=== PATIENT | male | born 1970 | race Caucasian/White ===

== ENCOUNTER 2018-09-28 13:37 | Emergency (ER) | payer OTHER ==
[~2018-09-28] VITALS: Ht 188 cm; Wt 122.7 kg
[~2018-09-28 13:37] MED LIST: ATOR20TA66 PO; CYCL-1 PO; FAMO-128 PO; IBUP-1986 PO; LISI-600 PO; MECL12.584 PO
[2018-09-28] MEDS ORDERED: ORPH100T2 PO (14:15)
[2018-09-28] MEDS ORDERED: ketorolac trometh inj. 60 MG/2 ML VIAL IM ONE (14:15)
[2018-09-28 14:35] VITALS: BP 150/75
== END 2018-09-28 14:43 | disposition home or self-care (01) ==
LOC: ER 13:37
DX: M54.6 Pain in thoracic spine (principal); E78.00 Pure hypercholesterolemia, unspecified; I10 Essential (primary) hypertension; Z79.899 Other long term (current) drug therapy; X50.0XXA Overexertion from strenuous movement or load, initial encounter; Y93.89 Activity, other specified; Y92.89 Other specified places as the place of occurrence of the external cause; Y99.8 Other external cause status
CPT/HCPCS: 96372; 99283; J1885

== ENCOUNTER 2019-07-26 08:02 | Emergency (ER) | payer OTHER ==
[~2019-07-26] VITALS: Ht 188 cm; Wt 125.6 kg
[~2019-07-26 08:02] MED LIST changes: +MECL-183 PO; -MECL12.584 PO; +ORPH100T2 PO
[2019-07-26 08:08] VITALS: BP 144/84
[2019-07-26] MEDS ORDERED: NAPR-56 PO (08:22)
== END 2019-07-26 08:37 | disposition home or self-care (01) ==
LOC: ER 08:02
DX: M25.461 Effusion, right knee (principal); E78.00 Pure hypercholesterolemia, unspecified; I10 Essential (primary) hypertension; F10.99 Alcohol use, unspecified with unspecified alcohol-induced disorder; Z79.899 Other long term (current) drug therapy; X58.XXXA Exposure to other specified factors, initial encounter; Y93.89 Activity, other specified; Y92.89 Other specified places as the place of occurrence of the external cause; Y99.8 Other external cause status; Y90.9 Presence of alcohol in blood, level not specified
CPT/HCPCS: 99283

== ENCOUNTER 2019-08-12 10:41 | Emergency (ER) | payer OTHER ==
[~2019-08-12] VITALS: Ht 188 cm; Wt 124.0 kg
[~2019-08-12 10:41] MED LIST changes: +NAPR-56 PO
[2019-08-12] MEDS ORDERED: ketorolac tromethamine 15mg/ml inj. IM ONE (13:20)
[2019-08-12] MEDS ORDERED: DICL100G15 TOP (13:33)
[2019-08-12 13:39] VITALS: BP 178/80
== END 2019-08-12 13:43 | disposition home or self-care (01) ==
LOC: ER 10:42
DX: M25.561 Pain in right knee (principal); E78.00 Pure hypercholesterolemia, unspecified; I10 Essential (primary) hypertension; Z72.89 Other problems related to lifestyle; Z79.899 Other long term (current) drug therapy; X50.1XXA Overexertion from prolonged static or awkward postures, initial encounter; Y93.89 Activity, other specified; Y92.89 Other specified places as the place of occurrence of the external cause; Y99.8 Other external cause status
CPT/HCPCS: 29530; 73721; 96372; 99284; J1885

== ENCOUNTER 2021-01-17 07:13 | Outpatient (CLI) | payer BC ==
[~2021-01-17 07:13] MED LIST changes: +DICL100G15 TOP; -LISI-600 PO; +LISI20TA28 PO; -MECL-183 PO; +MECL-226 PO; -NAPR-56 PO
[2021-01-17 09:20] LABS: CHOL/HDL RATIO 6.6 (0.00-4.99); CHOLESTEROL 138 MG/DL (0-200); HDL CHOLESTEROL 21 MG/DL (35-60); LDL CHOLESTEROL 103 MG/DL (50-100); TRIGLYCERIDES 93 MG/DL (20-135)
== END 2021-01-17 23:59 | disposition home or self-care (01) ==
LOC: LAB 07:13
PROVIDERS: ATTEND General Practice
DX: E78.5 Hyperlipidemia, unspecified (principal)
CPT/HCPCS: 36415; 80061

== ENCOUNTER 2022-01-01 08:38 | Outpatient (CLI) | payer OTHER | END 2022-01-01 23:59 | disposition home or self-care (01) | LOC: RAD 08:38 | PROVIDERS: ATTEND Family Medicine | DX: M25.461 Effusion, right knee (principal); M23.8X1 Other internal derangements of right knee; M94.8X8 Other specified disorders of cartilage, other site | CPT/HCPCS: 73721 ==

== ENCOUNTER 2022-01-02 13:40 | Outpatient (CLI) | payer OTHER ==
[2022-01-02 14:43] LABS: C-REACTIVE PROTEIN 0.28 MG/DL (0.0-0.5)
[2022-01-02 15:37] LABS: RHEUM FACTOR QUAL REFLEX TITER NEGATIVE (Neg)
== END 2022-01-02 23:59 | disposition home or self-care (01) ==
LOC: LAB 13:40
PROVIDERS: ATTEND Family Medicine
DX: M23.8X1 Other internal derangements of right knee (principal)
CPT/HCPCS: 36415; 85651; 86140; 86430

== ENCOUNTER 2023-02-26 06:38 | Outpatient (CLI) | payer BC ==
[~2023-02-26 06:38] MED LIST changes: -ORPH100T2 PO; +ORPH100T4 PO
[2023-02-26 07:27] LABS: ALANINE AMINOTRANSFERASE 54 U/L (12-78); ALBUMIN 4.3 G/DL (3.4-5.0); ALBUMIN/GLOBULIN RATIO 1.1 (1.1-1.5); ALKALINE PHOSPHATASE 67 IU/L (46-116); ANION GAP 7 (8-16); ASPARTATE AMINO TRANSFERASE 39 U/L (10-37); BILIRUBIN,TOTAL 0.5 MG/DL (0.1-1.0); BLOOD UREA NITROGEN 16 MG/DL (7-18); CALCIUM 9.3 MG/DL (8.5-10.1); CHLORIDE 101 MMOL/L (99-107); CHOL/HDL RATIO 4.3 (0.00-4.99); CHOLESTEROL 111 MG/DL (0-200); CREATININE 1.14 MG/DL (0.60-1.10); GLUCOSE 99 MG/DL (70-104); HDL CHOLESTEROL 26 MG/DL (35-60); LDL CHOLESTEROL 71 MG/DL (50-100); POTASSIUM 3.9 MMOL/L (3.5-5.1); SODIUM 137 MMOL/L (135-145); TOTAL CARBON DIOXIDE 28.6 MMOL/L (24-32); TOTAL PROTEIN 8.3 G/DL (6.4-8.2); TRIGLYCERIDES 72 MG/DL (20-135); eGFR 68 ML/MIN
[2023-02-26 07:42] LABS: BILIRUBIN,URINE NEGATIVE (Neg); CLARITY,URINE CLEAR (Clear); COLOR,URINE YELLOW (Yellow); GLUCOSE, URINE NEGATIVE (Neg); KETONES,URINE NEGATIVE (Neg); LEUKOCYTE ESTERASE ,URINE NEGATIVE (Neg); NITRITES, URINE NEGATIVE (Neg); OCCULT BLOOD,URINE NEGATIVE (Neg); PROTEIN,URINE NEGATIVE (Neg); UROBILINOGEN,URINE 0.2 E.U/dL (0.2-1.0)
[2023-02-26 07:45] LABS: UA COLLECTION TYPE VOIDED
[2023-02-26 07:49] LABS: BASOPHILS # (AUTO) 0.1 X10'3 (0-0.2); EOSINOPHILS # (AUTO) 0.2 X10'3 (0-0.9); HEMOGLOBIN 14.9 g/dl (14.0-17.9); LYMPHOCYTES # (AUTO) 1.7 X10'3 (1.1-4.8); LYMPHOCYTES % (AUTO) 23.1 % (21-51); MEAN CORPUSCULAR HEMOGLOBIN 30.6 PG (27.0-31.0); MEAN CORPUSCULAR HGB CONC 34.7 g/dL (33.0-36.5); MEAN CORPUSCULAR VOLUME 88.1 FL (78-98); MEAN PLATELET VOLUME 8.6 FL (7.4-10.4); MONOCYTES # (AUTO) 0.8 X10'3 (0-0.9); MONOCYTES % (AUTO) 10.2 % (2-12); NEUTROPHILS # (AUTO) 4.7 X10'3 (1.8-7.7); NEUTROPHILS % (AUTO) 62.7 % (42-75); PLATELET COUNT 225 X10'3 (140-440); RED BLOOD COUNT 4.88 X10'6 (4.70-6.10); RED CELL DISTRIBUTION WIDTH 12.7 % (11.5-14.5); WHITE BLOOD COUNT 7.4 X10'3 (4.5-11.0)
== END 2023-02-26 23:59 | disposition home or self-care (01) ==
LOC: LAB 06:38
PROVIDERS: ATTEND Physician Assistant Medical
DX: E78.5 Hyperlipidemia, unspecified (principal); R74.01 Elevation of levels of liver transaminase levels; R35.1 Nocturia; I10 Essential (primary) hypertension; R10.31 Right lower quadrant pain
CPT/HCPCS: 36415; 80053; 80061; 81003; 84153; 85025

== ENCOUNTER 2023-06-03 07:10 | Emergency (ER) | payer BC ==
[~2023-06-03] VITALS: Ht 189.2 cm; Wt 125.0 kg
[2023-06-03 07:14] VITALS: TEMP 97.5
[2023-06-03 08:11] LABS: BASOPHILS # (AUTO) 0.1 X10'3 (0-0.2); BASOPHILS % (AUTO) 0.8 % (0-1); EOSINOPHILS # (AUTO) 0.3 X10'3 (0-0.9); EOSINOPHILS % (AUTO) 3.6 % (0-6); HEMATOCRIT 42.7 % (42.0-52.0); HEMOGLOBIN 14.7 g/dl (14.0-17.9); LYMPHOCYTES # (AUTO) 1.6 X10'3 (1.1-4.8); LYMPHOCYTES % (AUTO) 20.1 % (21-51); MEAN CORPUSCULAR HEMOGLOBIN 30.3 PG (27.0-31.0); MEAN CORPUSCULAR HGB CONC 34.4 g/dL (33.0-36.5); MEAN PLATELET VOLUME 8.3 FL (7.4-10.4); MONOCYTES # (AUTO) 0.6 X10'3 (0-0.9); MONOCYTES % (AUTO) 7.6 % (2-12); NEUTROPHILS # (AUTO) 5.4 X10'3 (1.8-7.7); NEUTROPHILS % (AUTO) 67.9 % (42-75); PLATELET COUNT 224 X10'3 (140-440); RED BLOOD COUNT 4.86 X10'6 (4.70-6.10); WHITE BLOOD COUNT 7.9 X10'3 (4.5-11.0)
[2023-06-03 08:27] LABS: ALANINE AMINOTRANSFERASE 39 U/L (12-78); ALBUMIN 4.1 G/DL (3.4-5.0); ALKALINE PHOSPHATASE 81 IU/L (46-116); AMYLASE 58 U/L (25-115); ANION GAP 9 (8-16); ASPARTATE AMINO TRANSFERASE 28 U/L (10-37); BILIRUBIN,TOTAL 0.5 MG/DL (0.1-1.0); BLOOD UREA NITROGEN 11 MG/DL (7-18); BUN/CREATININE RATIO 10.9 (10.0-20.0); CALCIUM 9.2 MG/DL (8.5-10.1); CHLORIDE 101 MMOL/L (99-107); CREATININE 1.01 MG/DL (0.60-1.10); GLUCOSE 92 MG/DL (70-104); LIPASE 42 U/L (16-77); POTASSIUM 4.1 MMOL/L (3.5-5.1); SODIUM 136 MMOL/L (135-145); TOTAL CARBON DIOXIDE 26.4 MMOL/L (24-32); TOTAL PROTEIN 8.3 G/DL (6.4-8.2); eCRCL 102 ML/MIN; eGFR 78 ML/MIN
[2023-06-03 09:35] LABS: BILIRUBIN,URINE NEGATIVE (Neg); CLARITY,URINE CLEAR (Clear); COLOR,URINE YELLOW (Yellow); GLUCOSE, URINE NEGATIVE (Neg); KETONES,URINE NEGATIVE (Neg); LEUKOCYTE ESTERASE ,URINE NEGATIVE (Neg); NITRITES, URINE NEGATIVE (Neg); OCCULT BLOOD,URINE NEGATIVE (Neg); PH,URINE 6.5 (4.8-8.0); PROTEIN,URINE NEGATIVE (Neg); UROBILINOGEN,URINE 0.2 E.U/dL (0.2-1.0)
[2023-06-03 09:44] LABS: UA COLLECTION TYPE VOIDED
[2023-06-03 12:08] VITALS: BP 153/88; PULSE 49; RESP 18; O2SAT 98
== END 2023-06-03 12:13 | disposition home or self-care (01) ==
LOC: ER 07:11
DX: R10.84 Generalized abdominal pain (principal); E78.00 Pure hypercholesterolemia, unspecified; I10 Essential (primary) hypertension; Z79.899 Other long term (current) drug therapy
CPT/HCPCS: 36415; 74176; 80053; 81003; 82150; 83690; 85025; 99284

== ENCOUNTER 2024-01-01 10:23 | Outpatient (CLI) | payer BC ==
[2024-01-01 12:32] LABS: BASOPHILS % (AUTO) 0.5 % (0-1); EOSINOPHILS # (AUTO) 0.3 X10'3 (0-0.9); EOSINOPHILS % (AUTO) 3.6 % (0-6); HEMATOCRIT 42.9 % (42.0-52.0); HEMOGLOBIN 14.7 g/dl (14.0-17.9); LYMPHOCYTES # (AUTO) 1.8 X10'3 (1.1-4.8); LYMPHOCYTES % (AUTO) 19.9 % (21-51); MEAN CORPUSCULAR HEMOGLOBIN 30.6 PG (27.0-31.0); MEAN CORPUSCULAR HGB CONC 34.2 g/dL (33.0-36.5); MEAN CORPUSCULAR VOLUME 89.5 FL (78-98); MEAN PLATELET VOLUME 8.8 FL (7.4-10.4); MONOCYTES # (AUTO) 0.7 X10'3 (0-0.9); PLATELET COUNT 218 X10'3 (140-440); RED CELL DISTRIBUTION WIDTH 12.6 % (11.5-14.5); WHITE BLOOD COUNT 8.9 X10'3 (4.5-11.0)
[2024-01-01 12:38] LABS: ALANINE AMINOTRANSFERASE 43 U/L (12-78); ALBUMIN 3.9 G/DL (3.4-5.0); ALBUMIN/GLOBULIN RATIO 0.9 (1.1-1.5); ALKALINE PHOSPHATASE 72 IU/L (46-116); ANION GAP 7 (8-16); ASPARTATE AMINO TRANSFERASE 29 U/L (10-37); BILIRUBIN,TOTAL 0.4 MG/DL (0.1-1.0); BLOOD UREA NITROGEN 16 MG/DL (7-18); CALCIUM 9.4 MG/DL (8.5-10.1); CHLORIDE 103 MMOL/L (99-107); CREATININE 0.94 MG/DL (0.60-1.10); GLUCOSE 91 MG/DL (70-104); POTASSIUM 3.7 MMOL/L (3.5-5.1); SODIUM 138 MMOL/L (135-145); TOTAL CARBON DIOXIDE 28.4 MMOL/L (24-32); TOTAL PROTEIN 8.3 G/DL (6.4-8.2); URIC ACID 5.9 MG/DL (3.5-7.2); eGFR 84 ML/MIN
== END 2024-01-01 23:59 | disposition home or self-care (01) ==
LOC: RAD 10:23
PROVIDERS: ATTEND Podiatrist Foot & Ankle Surgery
DX: M77.31 Calcaneal spur, right foot (principal); I73.89 Other specified peripheral vascular diseases; M79.671 Pain in right foot; R53.82 Chronic fatigue, unspecified; M10.9 Gout, unspecified; M84.376A Stress fracture, unspecified foot, initial encounter for fracture
CPT/HCPCS: 36415; 73630; 80053; 84550; 85025

== ENCOUNTER 2024-03-15 11:25 | Observation (INO) | payer BC ==
[~2024-03-15] VITALS: Ht 188 cm; Wt 133.0 kg
[2024-03-15 11:52] LABS: BASOPHILS # (AUTO) 0.1 X10'3 (0-0.2); BASOPHILS % (AUTO) 0.7 % (0-1); EOSINOPHILS # (AUTO) 0.3 X10'3 (0-0.9); HEMATOCRIT 43.5 % (42.0-52.0); LYMPHOCYTES # (AUTO) 1.8 X10'3 (1.1-4.8); LYMPHOCYTES % (AUTO) 17.8 % (21-51); MEAN CORPUSCULAR HEMOGLOBIN 30.3 PG (27.0-31.0); MEAN CORPUSCULAR HGB CONC 34.4 g/dL (33.0-36.5); MEAN CORPUSCULAR VOLUME 88.1 FL (78-98); MEAN PLATELET VOLUME 8.5 FL (7.4-10.4); MONOCYTES # (AUTO) 0.8 X10'3 (0-0.9); MONOCYTES % (AUTO) 8.1 % (2-12); NEUTROPHILS # (AUTO) 7.2 X10'3 (1.8-7.7); NEUTROPHILS % (AUTO) 70.4 % (42-75); PLATELET COUNT 233 X10'3 (140-440); RED BLOOD COUNT 4.94 X10'6 (4.70-6.10); WHITE BLOOD COUNT 10.3 X10'3 (4.5-11.0)
[2024-03-15 12:09] LABS: ALANINE AMINOTRANSFERASE 45 U/L (12-78); ALBUMIN 4.2 G/DL (3.4-5.0); ALBUMIN/GLOBULIN RATIO 1.1 (1.1-1.5); ALKALINE PHOSPHATASE 78 IU/L (46-116); ANION GAP 10 (8-16); ASPARTATE AMINO TRANSFERASE 28 U/L (10-37); BILIRUBIN,TOTAL 0.4 MG/DL (0.1-1.0); BLOOD UREA NITROGEN 18 MG/DL (7-18); BUN/CREATININE RATIO 16.8 (10.0-20.0); CALCIUM 9.7 MG/DL (8.5-10.1); CHLORIDE 102 MMOL/L (99-107); CREATININE 1.07 MG/DL (0.60-1.10); GLUCOSE 85 MG/DL (70-104); SODIUM 137 MMOL/L (135-145); TOTAL PROTEIN 8.2 G/DL (6.4-8.2); eCRCL 94 ML/MIN; eGFR 73 ML/MIN
[2024-03-15 12:16] LABS: PRO BRAIN NATRIURETIC PEPTIDE 91 PG/ML (0-125)
[2024-03-15] MEDS: meclizine 12.5mg tablet PO ONE (14:58)
[2024-03-15] MEDS: normal saline 500ml IV soln 500 ML IV ONE (15:00)
[2024-03-15] MEDS ORDERED: iohexol 350MG/ML 100ml bottle IV ONE (15:47)
[2024-03-15] MEDS ORDERED: clopidogrel 300mg tablet PO ONE (18:55)
[2024-03-15] MEDS ORDERED: CLOP-32 PO (19:38)
[2024-03-15] MEDS: clopidogrel 75mg tablet PO ONE (20:24)
[2024-03-15] MEDS: aspirin 325mg tablet PO ONE (20:24)
[2024-03-15] MEDS ORDERED: acetaminophen 325mg tablet PO PRN ×2 (20:40)
[2024-03-15] MEDS ORDERED: magnesium hydroxide 30ml (MOM) UD suspension PO PRN (20:40)
[2024-03-15] MEDS ORDERED: potassium Cl 20 mEq SR tablet PO PRN (20:40)
[2024-03-15] MEDS ORDERED: mag hydrox/Alum hydrox/simeth 30ml oral suspension PO PRN (20:40)
[2024-03-15] MEDS ORDERED: magnesium Cl slow-release 64mg tablet PO PRN (20:40)
[2024-03-15] MEDS ORDERED: ondansetron/PF 4mg/2ml inj IV PRN (20:40)
[2024-03-15] MEDS ORDERED: magnesium sulf-water 2g/50mL 50 ML IV PRN (20:40)
[2024-03-15] MEDS ORDERED: magnesium sulf-water 4G/100mL 100 ML IV PRN (20:40)
[2024-03-15] MEDS ORDERED: potassium Cl 40MEQ/1/2NS 520ml 520 ML IV PRN (20:40)
[2024-03-15] MEDS ORDERED: FENO134C21 PO (21:25)
[2024-03-15] MEDS ORDERED: METO-395 PO (21:25)
[2024-03-15] MEDS ORDERED: LISI1TAB53 PO (21:25)
[2024-03-15] MEDS ORDERED: ATOR10TA70 PO (21:25)
[2024-03-15 23:26] LABS: CHOLESTEROL 124 MG/DL (0-200); HDL CHOLESTEROL 25 MG/DL (35-60); LDL CHOLESTEROL 82 MG/DL (50-100); TRIGLYCERIDES 143 MG/DL (20-135)
[2024-03-16 02:39] LABS: BASOPHILS # (AUTO) 0.1 X10'3 (0-0.2); BASOPHILS % (AUTO) 0.7 % (0-1); EOSINOPHILS # (AUTO) 0.4 X10'3 (0-0.9); EOSINOPHILS % (AUTO) 4.4 % (0-6); HEMATOCRIT 41.4 % (42.0-52.0); HEMOGLOBIN 13.7 g/dl (14.0-17.9); LYMPHOCYTES # (AUTO) 2.2 X10'3 (1.1-4.8); LYMPHOCYTES % (AUTO) 25.1 % (21-51); MEAN CORPUSCULAR HEMOGLOBIN 29.6 PG (27.0-31.0); MEAN CORPUSCULAR HGB CONC 33.1 g/dL (33.0-36.5); MEAN CORPUSCULAR VOLUME 89.4 FL (78-98); MEAN PLATELET VOLUME 8.5 FL (7.4-10.4); NEUTROPHILS # (AUTO) 5.1 X10'3 (1.8-7.7); NEUTROPHILS % (AUTO) 58.8 % (42-75); PLATELET COUNT 201 X10'3 (140-440); RED BLOOD COUNT 4.63 X10'6 (4.70-6.10); WHITE BLOOD COUNT 8.7 X10'3 (4.5-11.0)
[2024-03-16 02:49] LABS: ALBUMIN 3.4 G/DL (3.4-5.0); ANION GAP 7 (8-16); BLOOD UREA NITROGEN 19 MG/DL (7-18); BUN/CREATININE RATIO 19.6 (10.0-20.0); CALCIUM 8.9 MG/DL (8.5-10.1); CHLORIDE 104 MMOL/L (99-107); CREATININE 0.97 MG/DL (0.60-1.10); GLUCOSE 96 MG/DL (70-104); MAGNESIUM 1.8 MG/DL (1.5-2.4); POTASSIUM 3.3 MMOL/L (3.5-5.1); SODIUM 140 MMOL/L (135-145); TOTAL CARBON DIOXIDE 28.9 MMOL/L (24-32); eCRCL 104 ML/MIN; eGFR 81 ML/MIN
[2024-03-16 04:10] LABS: HEMOGLOBIN A1C 5.5 % (4.5-6.2)
[2024-03-16 07:00] VITALS: BP 135/71; PULSE 46; RESP 14; TEMP 97.4; O2SAT 98
[2024-03-16 08:00] VITALS: BP_SYST 128; BP_SYST 131; BP_SYST 138; BP_DIAS 58; BP_DIAS 75; BP_DIAS 79; PULSE 53; PULSE 54; PULSE 58; RESP 14; O2SAT 98
[2024-03-16] MEDS: K and/or MAG REPLACEMENT MC SCH (08:00)
[2024-03-16] MEDS: potassium Cl 20 mEq SR tablet PO PRN (09:08)
[2024-03-16] MEDS: aspirin 81mg, enteric-coated 1 TAB TABLET.DR PO SCH (09:09)
[2024-03-16] MEDS: atorvastatin 20mg tablet PO SCH (09:09)
[2024-03-16] MEDS: clopidogrel 75mg tablet PO SCH (09:09)
[2024-03-16] MEDS: docusate sod 100mg capsule PO SCH (09:10)
[2024-03-16 11:00] VITALS: BP 137/74; PULSE 54; RESP 19; TEMP 97.3; O2SAT 98
[2024-03-16] MEDS ORDERED: ASPI-1071 PO (13:34)
== END 2024-03-16 14:10 | disposition home or self-care (01) ==
LOC: ER 11:25 → INTOOBSV 21:05 → ED HOLD 21:05 → PCU 3S 03-16 07:00
PROVIDERS: ADMIT Internal Medicine Critical Care Medicine; ATTEND Internal Medicine
DX: E86.0 Dehydration (principal); R42 Dizziness and giddiness; G45.0 Vertebro-basilar artery syndrome; E78.5 Hyperlipidemia, unspecified; R60.0 Localized edema; N40.0 Benign prostatic hyperplasia without lower urinary tract symptoms; I10 Essential (primary) hypertension; Z91.013 Allergy to seafood; Z79.899 Other long term (current) drug therapy; Z86.2 Personal history of diseases of the blood and blood-forming organs and certain disorders involving the immune mechanism
CPT/HCPCS: 36415; 70496; 70498; 71045; 80048; 80053; 80061; 83036; 83735; 83880; 84484; 85025; 92508; 92616; 93005; 93306; 93880; 96360; 99291; G0378; J7030; J7040; J8597; Q9967

== ENCOUNTER 2024-11-07 06:34 | Outpatient (CLI) | payer BC ==
[~2024-11-07 06:34] MED LIST changes: +ASPI-1071 PO; -CYCL-1 PO; -DICL100G15 TOP; -FAMO-128 PO; +FENO134C21 PO; -IBUP-1986 PO; +LISI1TAB53 PO; -LISI20TA28 PO; -MECL-226 PO; +METO-395 PO; -ORPH100T4 PO
[2024-11-07 06:53] LABS: BASOPHILS # (AUTO) 0.1 X10'3 (0-0.2); BASOPHILS % (AUTO) 0.9 % (0-1); EOSINOPHILS # (AUTO) 0.3 X10'3 (0-0.9); EOSINOPHILS % (AUTO) 3.3 % (0-6); HEMATOCRIT 44.3 % (42.0-52.0); HEMOGLOBIN 15.4 g/dl (14.0-17.9); LYMPHOCYTES # (AUTO) 1.7 X10'3 (1.1-4.8); LYMPHOCYTES % (AUTO) 19.8 % (21-51); MEAN CORPUSCULAR HGB CONC 34.7 g/dL (33.0-36.5); MEAN CORPUSCULAR VOLUME 86.3 FL (78-98); MEAN PLATELET VOLUME 8.3 FL (7.4-10.4); MONOCYTES # (AUTO) 0.7 X10'3 (0-0.9); MONOCYTES % (AUTO) 8.1 % (2-12); NEUTROPHILS % (AUTO) 67.9 % (42-75); PLATELET COUNT 237 X10'3 (140-440); RED BLOOD COUNT 5.13 X10'6 (4.70-6.10); WHITE BLOOD COUNT 8.8 X10'3 (4.5-11.0)
[2024-11-07 07:10] LABS: ALANINE AMINOTRANSFERASE 46 U/L (12-78); ALBUMIN 4.3 G/DL (3.4-5.0); ALBUMIN/GLOBULIN RATIO 1.1 (1.1-1.5); ALKALINE PHOSPHATASE 84 IU/L (46-116); ANION GAP 8 (8-16); ASPARTATE AMINO TRANSFERASE 32 U/L (10-37); BILIRUBIN,TOTAL 0.6 MG/DL (0.1-1.0); BLOOD UREA NITROGEN 19 MG/DL (7-18); BUN/CREATININE RATIO 16.8 (10.0-20.0); CALCIUM 9.1 MG/DL (8.5-10.1); CHLORIDE 101 MMOL/L (99-107); CHOL/HDL RATIO 4.5 (0.00-4.99); CHOLESTEROL 117 MG/DL (0-200); CREATININE 1.13 MG/DL (0.60-1.10); GLUCOSE 100 MG/DL (70-104); HDL CHOLESTEROL 26 MG/DL (35-60); LDL CHOLESTEROL 81 MG/DL (50-100); POTASSIUM 4.2 MMOL/L (3.5-5.1); SODIUM 137 MMOL/L (135-145); TOTAL CARBON DIOXIDE 27.7 MMOL/L (24-32); TOTAL PROTEIN 8.3 G/DL (6.4-8.2); TRIGLYCERIDES 85 MG/DL (20-135); eGFR 68 ML/MIN
[2024-11-07 08:05] LABS: BILIRUBIN,URINE NEGATIVE (Neg); CLARITY,URINE CLEAR (Clear); COLOR,URINE YELLOW (Yellow); GLUCOSE, URINE NEGATIVE (Neg); KETONES,URINE NEGATIVE (Neg); LEUKOCYTE ESTERASE ,URINE NEGATIVE (Neg); NITRITES, URINE NEGATIVE (Neg); OCCULT BLOOD,URINE NEGATIVE (Neg); PROTEIN,URINE NEGATIVE (Neg); UROBILINOGEN,URINE 0.2 E.U/dL (0.2-1.0)
[2024-11-07 08:12] LABS: UA COLLECTION TYPE NON-SPECIFIED
== END 2024-11-07 23:59 | disposition home or self-care (01) ==
LOC: LAB 06:34
PROVIDERS: ATTEND Physician Assistant Medical
DX: I10 Essential (primary) hypertension (principal); E78.5 Hyperlipidemia, unspecified
CPT/HCPCS: 36415; 80053; 80061; 81003; 85025; 85651

== ENCOUNTER 2024-12-21 11:14 | Emergency (ER) | payer BC ==
[~2024-12-21] VITALS: Ht 188 cm; Wt 125.5 kg
[2024-12-21 12:09] LABS: BASOPHILS # (AUTO) 0.1 X10'3 (0-0.2); BASOPHILS % (AUTO) 0.8 % (0-1); EOSINOPHILS # (AUTO) 0.3 X10'3 (0-0.9); EOSINOPHILS % (AUTO) 3.4 % (0-6); HEMATOCRIT 41.9 % (42.0-52.0); HEMOGLOBIN 14.7 g/dl (14.0-17.9); LYMPHOCYTES # (AUTO) 1.6 X10'3 (1.1-4.8); LYMPHOCYTES % (AUTO) 18.6 % (21-51); MEAN CORPUSCULAR VOLUME 85.7 FL (78-98); MEAN PLATELET VOLUME 8.6 FL (7.4-10.4); MONOCYTES # (AUTO) 0.6 X10'3 (0-0.9); MONOCYTES % (AUTO) 7.4 % (2-12); NEUTROPHILS # (AUTO) 6.1 X10'3 (1.8-7.7); NEUTROPHILS % (AUTO) 69.8 % (42-75); PLATELET COUNT 236 X10'3 (140-440); RED BLOOD COUNT 4.89 X10'6 (4.70-6.10); RED CELL DISTRIBUTION WIDTH 12.7 % (11.5-14.5); WHITE BLOOD COUNT 8.7 X10'3 (4.5-11.0)
[2024-12-21 12:17] LABS: BILIRUBIN,URINE NEGATIVE (Neg); CLARITY,URINE CLEAR (Clear); COLOR,URINE YELLOW (Yellow); GLUCOSE, URINE NEGATIVE (Neg); KETONES,URINE NEGATIVE (Neg); LEUKOCYTE ESTERASE ,URINE NEGATIVE (Neg); NITRITES, URINE NEGATIVE (Neg); OCCULT BLOOD,URINE NEGATIVE (Neg); PROTEIN,URINE NEGATIVE (Neg); UROBILINOGEN,URINE 0.2 E.U/dL (0.2-1.0)
[2024-12-21 12:20] LABS: UA COLLECTION TYPE CLN CATCH MIDSTREAM
[2024-12-21 12:21] LABS: ALANINE AMINOTRANSFERASE 42 U/L (12-78); ALBUMIN 4.4 G/DL (3.4-5.0); ALKALINE PHOSPHATASE 86 IU/L (46-116); ANION GAP 11 (8-16); ASPARTATE AMINO TRANSFERASE 28 U/L (10-37); BILIRUBIN,TOTAL 0.5 MG/DL (0.1-1.0); BLOOD UREA NITROGEN 15 MG/DL (7-18); BUN/CREATININE RATIO 15.8 (10.0-20.0); CALCIUM 9.5 MG/DL (8.5-10.1); CHLORIDE 101 MMOL/L (99-107); CREATININE 0.95 MG/DL (0.60-1.10); GLUCOSE 88 MG/DL (70-104); POTASSIUM 3.9 MMOL/L (3.5-5.1); SODIUM 140 MMOL/L (135-145); TOTAL PROTEIN 8.6 G/DL (6.4-8.2); eCRCL 105 ML/MIN; eGFR 83 ML/MIN
[2024-12-21 12:43] VITALS: TEMP 98.1
--- NOTE | 2024-12-21 13:52 | RADIOLOGY REPORT ---
Exam: CT CT ABDOMEN PELVIS History: R flank pain Comparison Study: CT CT ABDOMEN PELVIS on DOS: 06/03/23 Technique: Multidetector spiral CT of the abdomen was performed from lung bases to pubic symphysis. I maging was performed without IV contrast. Axial, coronal and sagittal multiplanar reformats were obta ined from the axial data set by the technologist. Radiation Dose : 1. Abdomen/Pelvis: CTDIvol 36 mGy, DLP 1923 mGy*cm. Findings: Evaluation of solid organs is limited due to lack of intravenous contrast use. Lung Bases: No acute or significant lung base finding. Normal heart size. No pleural or pericardial effusion. Liver: Hepatic steatosis. Hepatomegaly. Gallbladder and Biliary Tree: Unremarkable Spleen: Unremarkable Pancreas: The pancreas is grossly normal in appearance. Adrenal Glands: Unremarkable Kidneys: Kidneys are grossly normal without calculi or hydronephrosis. Bladder: Grossly unremarkable for degree of distention. Bowel: The stomach is grossly normal in appearance. Diverticulosis. The appendix is not visualized; however, no secondary findings of acute appendicitis identified. Ascites: Absent Lymphadenopathy: No mesenteric, retroperitoneal or periportal lymphadenopathy. Abdominal Wall and Mesentery: Unremarkable. Vasculature: The visualized abdominal aorta is normal in size and caliber. Evaluation of abdominal a nd pelvic vessels is limited due to lack of intravenous contrast. Pelvic Organs: Prostate is enlarged. Musculoskeletal: No aggressive focal bony lesions, acute fractures or dislocation. IMPRESSION: Hepatic steatosis. Hepatomegaly. No renal or ureteral stone. Radiation optimization: All CT scans at this facility use at least one of these dose optimization beltran hniques: automated exposure control mA and/or kV adjustment per patient size (includes targeted exam s where dose is matched to clinical indication) or iterative reconstruction.
--- NOTE | 2024-12-21 14:15 | Physician Documentation ---
History of Present Illness Chief Complaint: Back Pain Stated Complaint: KIDNEY PAIN Time Seen by MD: 11:27 Primary Medical Doctor: GAGE ORTIZ NP Mode of Arrival: Ambulatory HPI 54 year old male with intermittent R flank pain that has been bothering him. Sharp, radiating to RLQ occasionally. Denies fever, nausea, vomiting, diarrhea, urinary symptoms. Has no history of kidney stones. Denies hematuria. Is on cholesterol medications. Medication Reconciliation Allergies: Coded Allergies: shellfish derived (Verified Allergy, Unknown, 12/21/24) Scheduled Aspirin (Ecotrin*), 1 TAB PO DAILY Atorvastatin Calcium (Atorvastatin Calcium), 1 TAB PO DAILY, (Reported) Fenofibrate,Micronized (Fenofibrate), 1 CAP PO DAILY, (Reported) Lisinopril/Hydrochlorothiazide (Lisinopril-Hctz 20-25 mg Tab), 1 TAB PO QAM, (Reported) Metoprolol Succinate (Metoprolol Succinate), 1 TAB PO BID, (Reported) Past Medical History Past Medical History: High Cholesterol, Hypertension Past Surgical History: no surgical history Smoking Status: Never smoker Alcohol Use: Occasionally Drug Use: none Lives with: Spouse Lives In: Home Occupation: employed Review of Systems All Other Systems at this time: Reviewed and Negative Physical Exam Vital Signs: RN Vital Signs have been reviewed: Yes, Temperature: 98.1, Source: Oral, Heart Rate: 54, Respiratory Rate: 16, BP: 120/54, Pulse Oximetry: 99, Weight: 125.450 Oxygen Flow Rate: 0 Physical Exam HEENT: PERRL, moist oral mucosa, EOMI Pulmonary: No respiratory distress Cardiac: RRR, no murmur, rub or gallop GI: nondistended, soft, nontender, no chandler's sign or mcburney's point tenderness, no guarding, no rebound MSK: no deformity Skin: w/d/i, no rash Neuro: alert, nonfocal Psych: normal affect Progress Results/Orders Results/Orders Orders - CELINE MIJARES MD Ct Abdomen Pelvis (12/21/24 13:00) Completed Orders - CELINE MIJARES MD Cbc/Diff (12/21/24 11:38) CMP (12/21/24 11:38) Urinalysis, Cult If Indicated (12/21/24 11:38) Ct Abdomen Pelvis (12/21/24 13:00) Vital Signs 12/21/24 12/21/24 11:30 12:43 Temp 98.1 Pulse 63 54 Resp 16 16 B/P (MAP) 161/88 120/54 (76) Pulse Ox 98 99 O2 Flow Rate 0 Laboratory Tests Test 12/21/24 11:48 12/21/24 11:52 Urine Specimen Description Cln catch midstream Urine Color Yellow Urine Clarity Clear Urine pH 6.0 Urine Specific [place] 1.015 Urine Protein Negative Urine Glucose (UA) Negative Urine Ketones Negative Urine Occult Blood Negative Urine Nitrite Negative Urine Bilirubin Negative Urine Urobilinogen 0.2 Urine Leukocyte Esterase Negative Urine Culture Indicated Not ind Volume Urine Centrifuged 10 ml Urine Comment White Blood Count 8.7 Red Blood Count 4.89 Hemoglobin 14.7 Hematocrit 41.9 L Mean Corpuscular Volume 85.7 Mean Corpuscular Hemoglobin 30.0 Mean Corpuscular Hemoglobin Concent 35.0 Red Cell Distribution Width 12.7 Platelet Count 236 Mean Platelet Volume 8.6 Neutrophils (%) (Auto) 69.8 Lymphocytes (%) (Auto) 18.6 L Monocytes (%) (Auto) 7.4 Eosinophils (%) (Auto) 3.4 Basophils (%) (Auto) 0.8 Neutrophils # (Auto) 6.1 Lymphocytes # (Auto) 1.6 Monocytes # (Auto) 0.6 Eosinophils # (Auto) 0.3 Basophils # (Auto) 0.1 CBC Comment Sodium Level 140 Potassium Level 3.9 Chloride Level 101 Carbon Dioxide Level 28.0 Anion Gap 11 Blood Urea Nitrogen 15 Creatinine 0.95 Estimated GFR/1.73 m2 83 BUN/Creatinine Ratio 15.8 Glucose Level 88 Calcium Level 9.5 Total Bilirubin 0.5 Aspartate Amino Transf (AST/SGOT) 28 Alanine Aminotransferase (ALT/SGPT) 42 Alkaline Phosphatase 86 Total Protein 8.6 H Albumin 4.4 Globulin 4.2 Albumin/Globulin Ratio 1.0 L Chemistry Comments Medical Decision Making Findings 54 year old male with R flank pain, benign vitals and exam. CT scan, interpreted by me, demonstrates no evidence of SBO, nor kidney stone, nor other acute intraabdominal findings. Labs, also reviewed and interpreted by me, demonstrate no evidence of acute intraabdominal pathology. Counseled, reassured, recommended follow up with PCP and standard return precautions for worsening symptoms. Risk for PE, ischemic kidney felt to be very low and not worth risk CT angiogram given the absence of comorbid risk factors. Differential Dx:Considerations: Include: Appendicitis, Bowel obstruction, Cholangitis, Constipation, Esophagitis, Gastritis/PUD, GI hemorrhage, Hernia, Inflammatory BD, Pancreatitis, Urinary obstruction, Urinary tract infection, Urolithiasis Departure Disposition: HOME / SELF CARE / HOMELESS Impression: Primary Impression: Abdominal pain Condition: Stable Discharge Instructions: Flank Pain, Adult Referrals: NO PRIMARY CARE PROVIDER (PCP) Education Educated: Patient Educated regarding: diagnosis, treatment, prognosis, need for follow up Signature Scribe Signature: . Attestation: . CELINE MIJARES MD Dec 21, 2024 14:15
[2024-12-21 14:49] VITALS: BP 155/82; PULSE 80; RESP 16; O2SAT 99
== END 2024-12-21 14:50 | disposition home or self-care (01) ==
LOC: ER 11:14
DX: R10.9 Unspecified abdominal pain (principal); E78.00 Pure hypercholesterolemia, unspecified; I10 Essential (primary) hypertension; Z91.040 Latex allergy status; Z79.82 Long term (current) use of aspirin; Z79.899 Other long term (current) drug therapy
CPT/HCPCS: 36415; 74176; 80053; 81003; 85025; 99284; J7030